=== PATIENT | male | born 1960 | race Caucasian/White ===

== ENCOUNTER 2020-03-24 13:39 | Outpatient (CLI) | payer OTHER, SELFPAY | END 2020-03-24 23:59 | disposition home or self-care (01) | LOC: MLB 13:39 → EDSTATUS 03-30 07:30 | PROVIDERS: ATTEND Internal Medicine Gastroenterology | DX: Z01.812 Encounter for preprocedural laboratory examination (principal); K62.5 Hemorrhage of anus and rectum; Z20.828 Contact with and (suspected) exposure to other viral communicable diseases | CPT/HCPCS: U0003 ==